=== PATIENT | female | born 1965 | race Caucasian/White ===

== ENCOUNTER 2017-01-23 15:43 | Emergency (ER) | payer OTHER ==
--- NOTE | 2017-01-23 16:07 | EDPHY ---
H & P Stated Complaint: R knee arthroscopy 2 wks ago;R calf soreness x 4 days;+US for DVT Time Seen by Provider: 01/23/17 15:56 - Personal History LMP (Females 10-55): Hysterectomy Current Tetanus Diphtheria and Acellular Pertussis (TDAP): Yes - Social History Smoking Status: Never smoked Constitutional: Initial Vital Signs Temperature (C) 36.6 C 01/23/17 15:52 Heart Rate 86 01/23/17 15:52 Respiratory Rate 18 01/23/17 15:52 Blood Pressure 126/77 H 01/23/17 15:52 O2 Sat (%) 98 01/23/17 15:52 O2 Delivery Mode Room Air Allergies/Adverse Reactions: No Known Allergies Allergy (Unverified 01/23/17 15:50) Home Medications: Medication Instructions Recorded Aspirin EC [Aspirin EC 325 mg (*)] 325 mg PO DAILY 01/23/17 Hydrocodone/APAP 5/325 [[place] 1 each PO 01/23/17 5/325 (*)] Medical Decision Making ED Course/Re-evaluation: I evaluated this patient, reviewed her ultrasound study, and discussed the case with Thor sapp. This patient has a provoked DVT 2 weeks out from meniscal repair. We will start her on Xarelto at 15 mg twice daily for the 1st 21 days and then 20 mg daily for the remainder 3 months. She will follow up with her PCP and orthopedic surgeon Dr. Balderas. Departure - Departure Referrals: Yara Asif MD [Primary Care Provider] - As per Instructions
--- NOTE | 2017-01-23 16:15 | EDPHY ---
H & P Time Seen by Provider: 01/23/17 15:56 HPI/ROS: CHIEF COMPLAINT: Known DVT right lower extremity HISTORY OF PRESENT ILLNESS: 51-year-old female 2 weeks postoperative right meniscus surgery by Dr. Oleg Balderas complaining of 2 days of right lower extremity edema, seen by Dr. Balderas today and sent for an outpatient ultrasound which is positive for DVT. Normal coloration distally. No dyspnea. No chest pain. No abdominal pain. REVIEW OF SYSTEMS: A ten point review of systems was performed and is negative with the exception of the items mentioned in the HPI PAST MEDICAL & SURGICAL HISTORY: No prior history of DVT PE SOCIAL HISTORY: Nonsmoker no drug use PHYSICAL EXAM (Prior to examination, patient consented to physical exam, hands were washed and my usual and customary physical exam procedures followed) 1) GENERAL: Well-developed, well-nourished, alert and oriented. Appears to be in no acute distress. 2) HEAD: Normocephalic, atraumatic 3) HEENT: Pupils equal, round, reactive to light bilaterally. Sclera anicteric. 4) NECK: Full range of motion, no meningeal signs. 5) LUNGS: Clear auscultation bilaterally, no wheezes, no rhonchi, no retractions. 6) HEART: Regular rate and rhythm, no murmur, no heave, no gallop. 7) ABDOMEN: No guarding, no rebound, no focal tenderness, negative McBurney's, negative Doll's, negative Rovsing's, negative peritoneal sign, 8) MUSCULOSKELETAL: Right lower extremity: Surgical scars and bandages in place. Normal coloration distally. Asymmetrical soft tissue swelling noted. Distal capillary refill is less than 2 sec, DP PT pulses present and brisk with soft compartments. Normal coloration temperature distally. Moving all extremities, no focal areas of tenderness, no obvious trauma. No peripheral edema or discoloration. 9) BACK: No CVA tenderness, no midline vertebral tenderness, no fluctuance, no step-off, no obvious trauma, no visual or palpable abnormality. 10) SKIN: No rash, no petechiae. 11) Psychiatric: Patient is oriented X 3, there is no agitation. DIFFERENTIAL DIAGNOSIS: In no particular include but limited to DVT, arterial occlusion, compartment syndrome Smoking Status: Never smoked Constitutional: Initial Vital Signs Temperature (C) 36.6 C 01/23/17 15:52 Heart Rate 86 01/23/17 15:52 Respiratory Rate 18 01/23/17 15:52 Blood Pressure 126/77 H 01/23/17 15:52 O2 Sat (%) 98 01/23/17 15:52 O2 Delivery Mode Room Air Allergies/Adverse Reactions: No Known Allergies Allergy (Unverified 01/23/17 15:50) Home Medications: Medication Instructions Recorded Aspirin EC [Aspirin EC 325 mg (*)] 325 mg PO DAILY 01/23/17 Hydrocodone/APAP 5/325 [[place] 1 each PO 01/23/17 5/325 (*)] Rivaroxaban [Xarelto 15mg (*)] 15 mg PO BID #42 tab 01/23/17 MDM/Departure - MDM ED Course/Re-evaluation: 3:57 p.m.: I reviewed the ultrasound results from today. This patient is neurovascular intact no evidence of arterial occlusion, phlegmasia cerulea/alba dolens. She has a primary care provider at [facility] in [place]. She will be started on Xarelto. Given usual customary anticoagulant precautions instructions, will need to follow up with her primary care provider. She feels comfortable with this plan. No respiratory distress. Case discussed with secondary supervising physician Dr. Osuna in ER - Depart Disposition: Home, Routine, Self-Care Clinical Impression: DVT (deep venous thrombosis) Qualifiers: DVT location: lower extremity Affected thrombotic vein of extremity: popliteal Chronicity: acute Laterality: right Qualified Code(s): I82.431 - Acute embolism and thrombosis of right popliteal vein Condition: Good Instructions: Deep Venous Thrombosis (ED) Additional Instructions: Return to emergency department if you develop shortness of breath, chest pain, discoloration of your leg or any other symptoms that concern you Prescriptions: Rivaroxaban [Xarelto 15mg (*)] 15 mg PO BID #42 tab Referrals: Yara Asif MD [Primary Care Provider] - 2-3 days, call for appt.
[2017-01-23 16:26] LABS: % IMMATURE GRANULYOCYTES 0.1 % (0.0-1.1); ABSOLUTE IMMATURE GRANULOCYTES 0.01 10^3/uL (0.00-0.10); ADD DIFF? NO; ADD MORPH? NO; ADD SCAN? NO; ATYPICAL LYMPHOCYTE FLAG 20 (0-99); FRAGMENT RBC FLAG 0 (0-99); HEMATOCRIT 41.7 % (38.0-47.0); HEMOGLOBIN 14.6 g/dL (12.6-16.3); LEFT SHIFT FLG 0 (0-99); LIPEMIA HEMOLYSIS FLAG 90 (0-99); MEAN CELL HEMOGLOBIN 32.7 pg (27.9-34.1); MEAN CELL VOLUME 93.3 fL (81.5-99.8); MEAN PLATELET VOLUME 12.4 fL (8.7-11.7); PLATELET CLUMPS FLAG 0 (0-99); PLATELET COUNT 195 10^3/uL (150-400); RED BLOOD CELL COUNT 4.47 10^6/uL (4.18-5.33); RED CELL DISTRIBUTION WIDTH 12.8 % (11.5-15.2)
[2017-01-23 16:35] LABS: INR 0.96 (0.83-1.16)
[2017-01-23 16:36] LABS: APTT 26.4 SEC (23.0-38.0)
[2017-01-23 16:37] VITALS: BP 124/82; PULSE 67; RESP 16; TEMP 98.1; O2SAT 96
[2017-01-23 16:38] LABS: ANION GAP 12 mEq/L (8-16); CALCIUM 9.6 mg/dL (8.5-10.4); CARBON DIOXIDE 27 mEq/l (22-31); CHLORIDE 102 mEq/L (97-110); CREATININE 0.9 mg/dL (0.6-1.0); GLOMERULAR FILTRATION RATE > 60; GLUCOSE 86 mg/dL (70-100); POTASSIUM 3.8 mEq/L (3.5-5.2); SODIUM 141 mEq/L (134-144)
== END 2017-01-23 16:37 | disposition home or self-care (01) ==
DX: I82.431 Acute embolism and thrombosis of right popliteal vein (principal); Z79.82 Long term (current) use of aspirin

== ENCOUNTER → 2017-01-23 | Outpatient (CLI) | payer OTHER | LOC: BRMIMAGING 14:02 | PROVIDERS: ATTEND Orthopaedic Surgery | DX: I82.411 Acute embolism and thrombosis of right femoral vein (principal); M25.561 Pain in right knee | CPT/HCPCS: 93971-PO ==

== ENCOUNTER → 2017-05-01 | Outpatient (CLI) | payer OTHER | LOC: BRMIMAGING 13:02 | PROVIDERS: ATTEND Family Medicine | DX: I82.5Z1 Chronic embolism and thrombosis of unspecified deep veins of right distal lower extremity (principal) | CPT/HCPCS: 93971-PO ==